=== PATIENT | female | born 1940 | race Caucasian/White ===

== ENCOUNTER 2016-04-20 09:52 | Outpatient (CLI) | payer OTHER ==
--- NOTE | 2016-04-20 11:00 | DIAGNOSTIC IMAGING REPORT ---
PROCEDURE: CT ABDOMEN/PELVIS W/O CONTRAST INDICATION: Left lower quadrant pain intermittently x2 weeks, initial encounter. TECHNIQUE: Noncontrast axial images were obtained of the entire abdomen and pelvis with sagittal and coronal reformations. COMPARISON: CT abdomen/pelvis 12/08/[address] 04/17/2014. FINDINGS: ABDOMEN: Stable 3 mm right lower lobe noncalcified nodule consistent with a granuloma. Mild bibasilar scarring. Normal heart size. Prominent pericardial fat pads. Cholecystectomy. Stable 8 mm left and 5 mm right hepatic lobe lesions in the dome of the liver, probable cysts. Pancreas, spleen, adrenal glands and right kidney are normal. Small left renal cyst. Mild atherosclerosis of the aorta. Mild descending colon diverticulosis. Stable 6.5 cm midline ventral hernia in the epigastric region. PELVIS: Midsigmoid suture line and mild diverticulosis of the proximal sigmoid but no evidence of diverticulitis. Appendectomy. Hysterectomy. Stable 6 cm fat-containing hernia inferior to the umbilical herniorrhaphy. No pelvic mass or free fluid. Stable 1 cm cutaneous nodule in the left pelvic ventral wall. L3-4 degenerative changes. IMPRESSION: 1. Mid sigmoid resection with mild descending and proximal sigmoid colon diverticulosis without inflammatory changes 2. Stable 6.5 cm fat-containing midline ventral hernia in the epigastric region 3. Umbilical herniorrhaphy with stable 6 cm fat-containing hernia along its inferior margin 4. Cholecystectomy, appendectomy and hysterectomy All CT scans at this facility use dose modulation, iterative reconstruction, and/or weight-based dosing when appropriate to reduce radiation dose to as low as reasonably achievable.
== END 2016-04-20 23:00 ==
LOC: CT SRH 09:52
DX: K57.30 Diverticulosis of large intestine without perforation or abscess without bleeding (principal); Z98.890 Other specified postprocedural states; Z90.49 Acquired absence of other specified parts of digestive tract